=== PATIENT | female | born 1995 | race African-American/Black ===

== ENCOUNTER 2021-04-02 01:02 | Emergency (ER) | payer MEDICAID ==
[~2021-04-02] VITALS: Ht 154.9 cm; Wt 64.0 kg
[2021-04-02] MEDS ORDERED: VISCOUS LIDOCAINE 2% 15 ML UDC MM STA (01:50)
[2021-04-02] MEDS ORDERED: XLV MT (01:57)
[2021-04-02] MEDS ORDERED: HYDROCODONE/ACETAMINOPHEN 5/325MG TABLET PO ONE (02:00)
[2021-04-02 04:00] VITALS: BP 118/78
[2021-04-02] MEDS ORDERED: DOXY100C5 MT (04:07)
== END 2021-04-02 04:32 | disposition home or self-care (01) ==
LOC: ER 01:02
DX: K60.2 Anal fissure, unspecified (principal); Z86.19 Personal history of other infectious and parasitic diseases
CPT/HCPCS: 99282; 99283

== ENCOUNTER 2021-10-15 15:09 | Emergency (ER) | payer MEDICAID ==
[~2021-10-15] VITALS: Ht 154.9 cm; Wt 57.0 kg
[~2021-10-15 15:09] MED LIST: DOXY100C5 MT; XLV MT
[2021-10-15 15:12] VITALS: BP 107/59
[2021-10-15 16:42] LABS: BASOPHILS % 0.4 % (0.0-2.0); EOSINOPHILS % 1.3 % (0.0-5.0); HEMATOCRIT. 42.2 % (36.0-48.0); HEMOGLOBIN. 14.7 g/dL (12.0-16.0); LYMPHOCYTES % 26.5 % (20.0-50.0); MEAN CORPUSCULAR VOLUME 86.4 fL (81.0-99.0); MONOCYTES % 6.6 % (2.0-8.0); NEUTROPHILS % 65.2 % (40.0-76.0); PLATELET 228 x1000/uL (130-400); RED BLOOD CELL COUNT 4.89 mill/uL (4.2-5.4)
[2021-10-15 16:46] LABS: CHLORIDE 109 mEq/L (98-107)
[2021-10-15 16:51] LABS: HCG SCREEN NEGATIVE
[2021-10-15 19:56] LABS: CLARITY URINE CLEAR (CLEAR); COLOR URINE YELLOW (YELLOW); KETONES URINE NEGATIVE (NEGATIVE); LEUKOCYTE ESTERASE URINE 1+ (NEGATIVE); NITRITE URINE NEGATIVE (NEGATIVE); OCCULT BLOOD URINE 3+ (NEGATIVE); PROTEIN URINE NEGATIVE (NEGATIVE); SPECIFIC GRAVITY URINE 1.024 (1.005-1.030)
[2021-10-15] MEDS ORDERED: CEPH500C2 MT (20:20)
[2021-10-15] MEDS ORDERED: IBUP-2029 MT (20:20)
== END 2021-10-15 20:47 | disposition home or self-care (01) ==
LOC: ER 15:09
DX: N30.00 Acute cystitis without hematuria (principal); N10 Acute pyelonephritis; J02.9 Acute pharyngitis, unspecified
CPT/HCPCS: 36415; 80053; 81003; 81025; 84703; 85025; 99283